=== PATIENT | male | born 1970 | race Caucasian/White ===

== ENCOUNTER 2017-06-07 06:04 | Day surgery (SDC) | payer OTHER ==
[2013-06-01 15:25] VITALS: BMI 34.1
[2017-06-07] MEDS ORDERED: Propofol 10 mg/ml Inj (20 ML) ONE (07:51)
[2017-06-07] MEDS ORDERED: Lactated Ringer's 1,000 ML IV ONE (07:55)
[2017-06-07] MEDS ORDERED: Ketamine 50 mg/ml Inj (10 ml) ONE (07:56)
[2017-06-07] MEDS ORDERED: Lidocaine Hydrochloride 5 ML INJ ONE (08:01)
[2017-06-07] MEDS ORDERED: Lactated Ringer's 500 ML IV SCH (08:15)
[2017-06-07 08:51] VITALS: TEMP 97.5
[2017-06-07 08:52] VITALS: O2SAT 99
[2017-06-07 08:59] VITALS: BP 110/73; PULSE 75; RESP 15
== END 2017-06-07 10:00 | disposition home or self-care (01) ==
LOC: C.ENDO 06:04
PROVIDERS: ATTEND Internal Medicine
DX: K21.0 Gastro-esophageal reflux disease with esophagitis (principal); K44.9 Diaphragmatic hernia without obstruction or gangrene; K29.70 Gastritis, unspecified, without bleeding; B96.81 Helicobacter pylori [H. pylori] as the cause of diseases classified elsewhere; I10 Essential (primary) hypertension; E78.5 Hyperlipidemia, unspecified; J44.9 Chronic obstructive pulmonary disease, unspecified; I25.10 Atherosclerotic heart disease of native coronary artery without angina pectoris; E66.9 Obesity, unspecified; Z68.33 Body mass index [BMI] 33.0-33.9, adult; Z79.82 Long term (current) use of aspirin; Z79.899 Other long term (current) drug therapy
CPT/HCPCS: 43239; 88305; J2704; J7120